=== PATIENT | female | born 1940 | race Hispanic/Latino ===

== ENCOUNTER 2016-12-12 08:00 | Day surgery (SDC) | payer BC, MEDICARE ==
[2016-11-12 11:01] VITALS: BMI 21.4
--- NOTE | 2016-12-12 09:37 | CP.SDSHP ---
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 Recent hemoptysis.) Misc: Other (DVT RLL.) Previous Surgical History: caesarian section x 2 - Allergies Allergies: Allergies codeine Adverse Reaction (Verified 12/12/16 09:08) HEADACHE - Physical Exam General Appearance: Thin well developed female. Vital Signs: Vital Signs 12/12/16 12/12/16 08:46 08:51 Temperature 97.7 F Pulse Rate 83 83 Respiratory 19 Rate Blood Pressure 136/57 L O2 Sat by Pulse 94 L Oximetry Mental Status: Alert & Oriented x3 Neuro: WNL Heart: WNL Lungs: Other (sonorous and sibilant rhonchi bilaterally.) GI: WNL - {Optional Preform as Required} Other Pertinent Findings: + dependant edema of RLE. - Impression Impression: Hemoptysis. 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 Pt. Evaluated Today:Candidate for Anesthesia & Procedure: Yes - Date & Time Date: 12/12/16 Time: 09:41 Short Stay Discharge - Short Stay Discharge Admitting Diagnosis/Reason for Visit: R04.2 Disposition: HOME/ ROUTINE Referrals: Stanislaw Everett MD [Primary Care Provider] -
[2016-12-12] MEDS ORDERED: Lactated Ringer's 1,000 ML IV ONE (10:00)
[2016-12-12] MEDS ORDERED: Lidocaine 1% Inj (20ml) TP ONE (10:01)
[2016-12-12] MEDS ORDERED: Propofol 10 mg/ml Inj (20 ML) ONE (10:13)
[2016-12-12] MEDS ORDERED: Midazolam 2 MG/2 ML VIAL ONE (10:13)
[2016-12-12] MEDS ORDERED: Lactated Ringer's 1,000 ML IV SCH (11:00)
--- NOTE | 2016-12-12 11:33 | CP.SDSHP ---
Same Day Surgery H & P - Allergies Allergies: Allergies codeine Adverse Reaction (Verified 12/12/16 09:08) HEADACHE - Physical Exam Vital Signs: Vital Signs 12/12/16 12/12/16 12/12/16 08:46 08:51 10:40 Temperature 97.7 F 97.4 F L Pulse Rate 83 83 89 Respiratory 19 18 Rate Blood Pressure 136/57 L 134/70 O2 Sat by Pulse 94 L 100 Oximetry 12/12/16 12/12/16 10:55 11:10 Temperature Pulse Rate 90 94 H Respiratory 18 20 Rate Blood Pressure 130/80 134/86 O2 Sat by Pulse 100 100 Oximetry Short Stay Discharge - Short Stay Discharge Admitting Diagnosis/Reason for Visit: R04.2 Disposition: HOME/ ROUTINE Referrals: Stanislaw Everett MD [Primary Care Provider] - Additional Instructions (Diet, Activity): Call office of Dr George on Thursday. Progress Note/Discharge Note with Instructions: Has done well with bronchoscopy. No ill effects other than increased cough. Post-procedure CXR essentially unchanged. May be discharged to home after eating.
[2016-12-12 12:55] VITALS: RESP 18
--- NOTE | 2016-12-12 15:25 | RAD ---
HISTORY: Post bronchoscopy. Technique: Single view portable semi erect @ 11:22. COMPARISON: 12/06/2016. 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 Findings are asymmetric more pronounced right upper lobe and pleural space compared the left. PLEURA: No significant pleural effusion identified, no pneumothorax apparent. CARDIOVASCULAR: No radiographic findings to suggest acute or significant cardiovascular disease. OSSEOUS STRUCTURES: No significant abnormalities. VISUALIZED UPPER ABDOMEN: Normal. OTHER FINDINGS: None. IMPRESSION: No adverse findings following bronchoscopy. No significant interval change compared to the prior examination(s).
[2016-12-12 15:42] VITALS: BP 164/82; PULSE 93; TEMP 98; O2SAT 94
== END 2016-12-12 13:40 | disposition home or self-care (01) ==
LOC: H.OPSURG 08:00
PROVIDERS: ATTEND Internal Medicine Pulmonary Disease
DX: R04.2 Hemoptysis (principal); J44.9 Chronic obstructive pulmonary disease, unspecified; F17.200 Nicotine dependence, unspecified, uncomplicated
CPT/HCPCS: 31622; 71010; 87015; 87070; 87101; 87116; 87181; 87206; 88104; 88305; J0171; J2250; J2704; J3010; J7120